=== PATIENT | male | born 1995 | race Caucasian/White ===

== ENCOUNTER 2017-10-15 23:18 | Emergency (ER) | payer SELFPAY ==
[~2017-10-15] VITALS: Ht 167.6 cm; Wt 60.0 kg
[2017-10-15 23:19] VITALS: BP 180/100; PULSE 80; RESP 16; TEMP 98.6; O2SAT 100
[2017-10-16] MEDS ORDERED: CYCL10TA PO (03:24)
--- NOTE | 2017-10-16 03:24 | PD ---
HPI Chief Complaint: Back/ Neck Pain or Injury Time Seen by Provider: 02:55 Travel History International Travel<30 days: No Contact w/Intl Traveler<30days: No Traveled to known affect area: No History of Present Illness HPI 22-year-old male presents emergency department for evaluation of back pain. Patient states he was working off the books 2 days ago on a ladder and fell 4 feet backwards landing on his back. States he's been having low back pain since then. Denies any other injuries, denies any chest pain shortness breath abdominal pain nausea vomiting. Denies any head injury denies any loss of consciousness. States that he was able to walk it off initially but then the pain started getting worse or decided he seen. Denies any focalized weakness denies any numbness tingling in his groin area denies any difficulty urinating. PFSH Past Medical History Medical History: Denies Significant Hx Diminished Hearing: No Tetanus Vaccination: Unknown Past Surgical History Surgical History: No Previous Surgery Social History Alcohol Use: No Tobacco Use: Yes Substance Use: No Allergies-Medications (Allergen,Severity, Reaction): Coded Allergies: No Known Allergies (Unverified , 10/16/17) Reported Meds & Prescriptions Reported Meds & Active Scripts Active Flexeril (Cyclobenzaprine HCl) 10 Mg Tab 10 Mg PO TID Review of Systems Except as stated in HPI: all other systems reviewed are Neg Physical Exam Narrative GENERAL: Well-nourished, well-developed patient. SKIN: Focused skin assessment warm/dry. HEAD: Normocephalic. Atraumatic no webber signs or raccoons eyes EYES: No scleral icterus. No injection or drainage. NECK: Supple, trachea midline. No JVD or lymphadenopathy. CARDIOVASCULAR: Regular rate and rhythm without murmurs, gallops, or rubs. RESPIRATORY: Breath sounds equal bilaterally. No accessory muscle use. GASTROINTESTINAL: Abdomen soft, non-tender, nondistended. MUSCULOSKELETAL: No cyanosis, or edema. No bruising the laceration and contusion seen on his back, no midline CT or L-spine tenderness. Extremities are atraumatic. BACK: Nontender without obvious deformity. No CVA tenderness. Data Data Last Documented VS Orders Orders Cyclobenzaprine (Flexeril) (10/16/17 03:30) Ed Discharge Order (10/16/17 03:24) [facility] Medical Decision Making Medical Screen Exam Complete: Yes Emergency Medical Condition: Yes Differential Diagnosis Back strain, back contusion, back pain. Narrative Course Patient roomed in emergency department, no midline CT or L-spine tenderness, highly unlikely the have any fracture and x-rays and therefore not indicated. Discussed symptomatic management returned ED criteria for follow-up the primary care physician. He stable for discharge. Diagnosis Primary Impression: Back contusion Qualified Codes: S20.221A - Contusion of right back wall of thorax, initial encounter Patient Instructions: General Instructions, RICE Therapy (ED) Med/Other Pt SpecificInfo: Prescription(s) given Scripts Cyclobenzaprine (Flexeril) 10 Mg Tab 10 MG PO TID for Muscle Spasm, #20 TAB 0 Refills Prov: Eran Goldsmith MD 10/16/17 Disposition: 01 DISCHARGE HOME Condition: Stable Eran Goldsmith MD Oct 16, 2017 03:24
[2017-10-16] MEDS ORDERED: CYCLOBENZAPRINE HCL 10 MG TAB PO ONE (03:30)
== END 2017-10-16 03:39 | disposition home or self-care (01) ==
LOC: NEPE 23:18
DX: S20.221A Contusion of right back wall of thorax, initial encounter (principal); W11.XXXA Fall on and from ladder, initial encounter; Z72.0 Tobacco use
CPT/HCPCS: 99283